=== PATIENT | male | born 1955 | race Caucasian/White ===

== ENCOUNTER 2020-08-16 11:21 | Day surgery (SDC) | payer BC ==
[~2020-08-16] VITALS: Ht 188 cm; Wt 88.8 kg
[2020-08-16] VITALS (9 sets, daily range): BP systolic 91–146; BP diastolic 65–104
[2020-08-16] MEDS ORDERED: normal saline 1,000 ML IV SCH (11:50)
[2020-08-16] MEDS ORDERED: diphenhydrAMINE 25mg capsule PO PRN (11:50)
[2020-08-16] MEDS ORDERED: LIDOcaine/PRILOcaine 5gm cream TP ONE (11:50)
[2020-08-16] MEDS ORDERED: LORazepam 0.5 MG tablet PO PRN (11:50)
[2020-08-16] MEDS ORDERED: IRBE150T24 PO (11:56)
[2020-08-16] MEDS ORDERED: FLO0.4C PO (11:56)
[2020-08-16] MEDS ORDERED: OMEG-79 PO (11:56)
[2020-08-16] MEDS ORDERED: TURM1POW (11:56)
[2020-08-16] MEDS ORDERED: OREG1500 PO (11:56)
[2020-08-16] MEDS ORDERED: VITA-268 PO (11:56)
[2020-08-16] MEDS ORDERED: nitroGLYCERIN-Tridil 50MG/D5W 250 ML IV ONE (13:27)
[2020-08-16] MEDS ORDERED: iohexol 350MG/ML 100ml bottle IV ONE (13:28)
[2020-08-16] MEDS ORDERED: LIDOcaine 1% (10mg/ml)w/preservative injection 20ml MDV ONE (13:28)
[2020-08-16] MEDS ORDERED: fentaNYL/PF 50MCG/1 ML 2ML syringe ONE (13:28)
[2020-08-16] MEDS ORDERED: midazolam 1 mg/ML 2ml injection ONE (13:28)
[2020-08-16] MEDS ORDERED: heparin 1,000unit/ml 10ml vial 10 ML ONE (13:28)
[2020-08-16] MEDS ORDERED: verapamil 2.5 mg/ml inj IV ONE (13:28)
[2020-08-16] MEDS ORDERED: iohexol 350 MG/ML 50ML vial IV ONE (13:44)
[2020-08-16] MEDS ORDERED: ondansetron/PF 4mg/2ml inj IV PRN (14:35)
[2020-08-16] MEDS ORDERED: OXAZEpam 15mg capsule PO PRN (14:40)
[2020-08-16] MEDS ORDERED: HYDROcodone/acetaminophen 5mg/325mg tablet PO PRN (14:40)
[2020-08-16] MEDS ORDERED: HYDROcodone/acetaminophen 10/325mg tab PO PRN (14:40)
[2020-08-16] MEDS ORDERED: proCHLORperazine 10 MG/2 ml inj IV PRN (14:40)
== END 2020-08-16 17:00 | disposition home or self-care (01) ==
LOC: SSTAY O 11:21
PROVIDERS: ATTEND Internal Medicine Interventional Cardiology
DX: I71.2 Thoracic aortic aneurysm, without rupture (principal); I25.10 Atherosclerotic heart disease of native coronary artery without angina pectoris; E78.5 Hyperlipidemia, unspecified; I10 Essential (primary) hypertension; F32.9 Major depressive disorder, single episode, unspecified; Z86.010 Personal history of colon polyps; Z79.899 Other long term (current) drug therapy; Z88.1 Allergy status to other antibiotic agents; Z87.891 Personal history of nicotine dependence
CPT/HCPCS: 93005; 93458; 93567; 99152; C1769; C1894; J1644; J2001; J2250; J3010; J7030; Q0163; Q9967; 99153; A4620; J3490

== ENCOUNTER 2020-11-02 05:20 | Inpatient (IN) | payer BC ==
[2020-10-26 13:33] LABS: CLARITY,URINE CLEAR (Clear); COLOR,URINE YELLOW (Yellow); GLUCOSE, URINE NEGATIVE (Neg); KETONES,URINE NEGATIVE (Neg); LEUKOCYTE ESTERASE ,URINE TRACE (Neg); NITRITES, URINE NEGATIVE (Neg); OCCULT BLOOD,URINE NEGATIVE (Neg); PH,URINE 6.5 (4.8-8.0); PROTEIN,URINE NEGATIVE (Neg); UROBILINOGEN,URINE 0.2 E.U/dL (0.2-1.0)
[2020-10-26 13:40] LABS: UA COLLECTION TYPE CLN CATCH MIDSTREAM
[2020-10-26 13:42] LABS: BACTERIA,URINE NONE SEEN /HPF (Neg); MUCUS STRANDS NONE SEEN /LPF (Neg); RBC,URINE NONE SEEN /HPF (0-2); SQUAMOUS EPITHELIAL CELL,UR FEW /LPF (FEW); WBC,URINE 0-4 /HPF (0-4)
[2020-10-26 14:15] LABS: BASOPHILS # (AUTO) 0.1 X10'3 (0-0.2); EOSINOPHILS # (AUTO) 0.1 X10'3 (0-0.9); EOSINOPHILS % (AUTO) 1.1 % (0-6); LYMPHOCYTES # (AUTO) 2.1 X10'3 (1.1-4.8); LYMPHOCYTES % (AUTO) 31.3 % (21-51); MEAN CORPUSCULAR HEMOGLOBIN 32.8 PG (27.0-31.0); MEAN CORPUSCULAR HGB CONC 34.4 g/dL (33.0-36.5); MEAN CORPUSCULAR VOLUME 95.3 FL (78-98); MEAN PLATELET VOLUME 8.3 FL (7.4-10.4); MONOCYTES # (AUTO) 0.5 X10'3 (0-0.9); MONOCYTES % (AUTO) 8.2 % (2-12); NEUTROPHILS # (AUTO) 3.9 X10'3 (1.8-7.7); NEUTROPHILS % (AUTO) 58.4 % (42-75); PRE OP HEMOGLOBIN 14.8 g/dL (14.0-17.9); PRE OP PLATELET COUNT 279 X10'3 (140-440); RED BLOOD COUNT 4.51 X10'6 (4.70-6.10); RED CELL DISTRIBUTION WIDTH 12.8 % (11.5-14.5)
[2020-10-26 14:23] LABS: HEMOGLOBIN A1C 5.5 % (4.5-6.2)
[2020-10-26 14:27] LABS: PRE OP PROTIME 10.5 SECONDS (9.0-12.0)
[2020-10-26 14:30] LABS: ALBUMIN 3.9 G/DL (3.4-5.0); ALBUMIN/GLOBULIN RATIO 1.2 (1.1-1.5); ALKALINE PHOSPHATASE 55 IU/L (46-116); BLOOD UREA NITROGEN 20 MG/DL (7-18); BUN/CREATININE RATIO 21.1 (5.4-32.0); CHLORIDE 103 MMOL/L (99-107); CREATININE 0.95 MG/DL (0.60-1.10); PRE OP ALT 34 U/L (30-65); PRE OP ANION GAP 10 (8-16); PRE OP AST 27 U/L (10-37); PRE OP BILIRUB, TOTAL 0.7 MG/DL (0.0-1.0); PRE OP GLUCOSE 103 MG/DL (70-104); PRE OP POTASSIUM 3.9 MMOL/L (3.4-5.1); PRE OP SODIUM 140 MMOL/L (135-145); TOTAL CARBON DIOXIDE 27.1 MMOL/L (24-32); TOTAL PROTEIN 7.2 G/DL (6.4-8.2); eGFR 80 ML/MIN
[2020-10-26 16:09] LABS: ABG BASE EXCESS 0.6 mmol/L (-2.0-2.0); ABG HCO3 23.5 mmol/L (22.0-26.0); ABG OXYGEN SATURATION 96.9 % (94-97); ABG PCO2 (T) 33.1 mmHg (35.0-48.0); ABG PO2 (T) 87.8 mmHg (75.0-100.0); ALLEN'S TEST POSITIVE; FCOHb 0.6 % (0.0-3.9); FO2Hb 96.3 % (94-97); TOTAL HEMOGLOBIN 15.1 G/dl (14.0-18.0)
[2020-11-02] VITALS (17 sets, daily range): BP systolic 101–147; BP diastolic 50–90
[~2020-11-02] VITALS: Ht 165.1 cm; Wt 87.2 kg
[~2020-11-02 05:20] MED LIST: CHOL10006 PO; FLO0.4C PO; GRAP50CA PO; LACT1CAP65 PO; LOSA1TAB41 PO; MULT-1085 PO; OMEG-79 PO; OREG1500 PO; TURM1POW PO; VITA-268 PO; ceFAZolin 1000mg inj ONE; ringers solution, lacted 1,000 ML IV SCH
[2020-11-02] MEDS ORDERED: cefazolin/dext.iso 2gm/100ml IV ONE (05:30)
[2020-11-02] MEDS ORDERED: vancomycin 1,500 MG in NS 300ml IV soln IV ONE (05:30)
[2020-11-02] MEDS ORDERED: gabapentin 400mg capsule PO ONE (05:30)
[2020-11-02] MEDS ORDERED: insulin glargine (Lantus) pen - multi-dose SQ PRN ×2 (05:30→11:30)
[2020-11-02] MEDS ORDERED: LORazepam 2 mg/ml vial IV PRN (05:30)
[2020-11-02] MEDS ORDERED: mupirocin 2% nasal ointment 1gm UD NS ONE (05:30)
[2020-11-02] MEDS ORDERED: famotidine 20mg tablet PO ONE (05:30)
[2020-11-02] MEDS ORDERED: Insulin Reg/NS 100units/100mL 100 ML IV SCH ×2 (05:30→11:30)
[2020-11-02] MEDS ORDERED: metoprolol tartrate 12.5mg (1/2 tablet) PO ONE (05:30)
[2020-11-02] MEDS ORDERED: MIDAZolam 1 MG/ML 5ML VIAL ONE (06:59)
[2020-11-02] MEDS ORDERED: SUFENTANIL CITRATE 50 MCG/ML 2ml ampule IV ONE (06:59)
[2020-11-02] MEDS ORDERED: propofol inj 20 ML IV ONE (07:00)
[2020-11-02] MEDS ORDERED: rocuronium 10mg/ml inj IV ONE ×3 (07:03→11:26)
[2020-11-02] MEDS ORDERED: NORepinephrine 8 MG in NS 250 ML BAG (32 mcg/ml) IV ONE (08:00)
[2020-11-02] MEDS ORDERED: albumin (Human) 5% 250ml BOTTLE IV ONE (08:00)
[2020-11-02] MEDS ORDERED: calcium chloride 100 MG/1 ML inj IV ONE (08:00)
[2020-11-02] MEDS ORDERED: heparin 1,000 units/ml 10ml inj ONE (08:00)
[2020-11-02] MEDS ORDERED: MAGNESIUM SULFATE 4 MEQ/ML (5gm/10ml) injection ONE (08:00)
[2020-11-02] MEDS ORDERED: potassium Cl 2 mEq/ml inj IV ONE (08:00)
[2020-11-02] MEDS ORDERED: heparin 10,000 units/1 ML INJ ONE (08:00)
[2020-11-02] MEDS ORDERED: LIDOcaine 2% (20 mg/ml) 5ml cardiac syringe ONE (08:00)
[2020-11-02] MEDS ORDERED: methylPREDNISolone sod succ 1000mg vial ONE (08:00)
[2020-11-02] MEDS ORDERED: aminocaproic acid 250 MG/1 ML inj. ONE (08:00)
[2020-11-02] MEDS ORDERED: sodium bicarbonate (8.4%) 1 mEq/ml syringe ONE (08:00)
[2020-11-02 08:25] LABS: ABG BASE EXCESS 1.6 mmol/L (-2.0-2.0); ABG HCO3 26.6 mmol/L (22.0-26.0); ABG OXYGEN SATURATION 98.6 % (94-97); ABG PCO2 43.5 mmHg (35.0-48.0); ABG PO2 133.5 mmHg (75.0-100.0); CL (ABG) 104 mmol/L (98-110); FCOHb 0.5 % (0.0-3.9); FMetHb 0.3 % (0.0-1.5); FO2Hb 97.8 % (94-97); GLUCOSE (ABG) 136 mg/dl (70-105); IONIZED CA (ABG) 1.15 mmol/L (1.10-1.43); K (ABG) 3.7 mmol/L (3.5-5.0); TOTAL HEMOGLOBIN 13.1 G/dl (14.0-18.0)
[2020-11-02] MEDS ORDERED: NORMAL SALINE IV ONE (09:25)
[2020-11-02] MEDS ORDERED: DESMOPRESSIN IV ONE (09:25)
[2020-11-02 09:45] LABS: ABG BASE EXCESS 0.7 mmol/L (-2.0-2.0); ABG HCO3 25.8 mmol/L (22.0-26.0); ABG OXYGEN SATURATION 99.4 % (94-97); ABG PCO2 43.2 mmHg (35.0-48.0); ABG PO2 421.3 mmHg (75.0-100.0); CL (ABG) 104 mmol/L (98-110); FCOHb 0.3 % (0.0-3.9); FMetHb 0.3 % (0.0-1.5); FO2Hb 98.8 % (94-97); GLUCOSE (ABG) 130 mg/dl (70-105); IONIZED CA (ABG) 1.07 mmol/L (1.10-1.43); K (ABG) 4.1 mmol/L (3.5-5.0); TOTAL HEMOGLOBIN 10.6 G/dl (14.0-18.0)
[2020-11-02 10:13] LABS: ABG BASE EXCESS VENOUS -0.9 mmol/L (-2.0 - 2.0); ABG HCO3 VENOUS 24.2 mmol/L (21.0-28.0); ABG PCO2 VENOUS 41.9 mmHg (41.0-54.0); ABG PO2 VENOUS 39.9 mmHg (25.0-35.0); CL (ABG) 102 mmol/L (98-110); FCOHb VENOUS 0.6 %; FHHb VENOUS 24.1 %; FMetHb VENOUS 0.3 % (0.0 - 0.5); GLUCOSE (ABG) 141 mg/dl (70-105); IONIZED CA (ABG) 1.28 mmol/L (1.10-1.43); K (ABG) 4.4 mmol/L (3.5-5.0); TOTAL HEMOGLOBIN 9.7 G/dl (14.0-18.0)
[2020-11-02 10:33] LABS: ABG BASE EXCESS VENOUS 0.2 mmol/L (-2.0 - 2.0); ABG HCO3 VENOUS 25.2 mmol/L (21.0-28.0); ABG PCO2 VENOUS 42.1 mmHg (41.0-54.0); ABG PO2 VENOUS 53.1 mmHg (25.0-35.0); CL (ABG) 103 mmol/L (98-110); FCOHb VENOUS 0.3 %; FHHb VENOUS 13.5 %; FMetHb VENOUS 0.3 % (0.0 - 0.5); FO2Hb VENOUS 85.9 %; GLUCOSE (ABG) 158 mg/dl (70-105); IONIZED CA (ABG) 1.22 mmol/L (1.10-1.43); TOTAL HEMOGLOBIN 10.6 G/dl (14.0-18.0)
[2020-11-02 10:36] LABS: ACTIVATED CLOTTING TIME 113 SEC (101-148)
[2020-11-02] MEDS ORDERED: pantoprazole 40 MG vial IV ONE (11:30)
[2020-11-02] MEDS ORDERED: metoclopramide 5 mg/ml inj IV PRN (11:30)
[2020-11-02] MEDS ORDERED: bisacodyl 10mg suppository rectal RC PRN (11:30)
[2020-11-02] MEDS ORDERED: dextrose 50%-water 50ml dispensing syringe IV PRN ×2 (11:30→11:35)
[2020-11-02] MEDS ORDERED: magnesium 2GM in 50ml NS 50 ML IV PRN (11:30)
[2020-11-02] MEDS ORDERED: potassium Cl 40MEQ/1/2NS 520ml 520 ML IV PRN (11:30)
[2020-11-02] MEDS ORDERED: nitroGLYCERIN-Tridil 50MG/D5W 250 ML IV PRN (11:30)
[2020-11-02] MEDS ORDERED: normal saline 250ml IV soln 250 ML IV PRN (11:30)
[2020-11-02] MEDS ORDERED: potassium Cl 20 mEq SR tablet PO PRN (11:30)
[2020-11-02] MEDS ORDERED: mineral oil 133ml enema RC PRN (11:30)
[2020-11-02] MEDS ORDERED: niCARDipine-NS 40mg/200ml IVPB 200 ML IV PRN (11:30)
[2020-11-02] MEDS ORDERED: magnesium hydroxide 30ml (MOM) UD suspension PO PRN (11:30)
[2020-11-02] MEDS ORDERED: Neutra Phos packet PO PRN (11:30)
[2020-11-02] MEDS ORDERED: sodium phosphate inj. 15 MMOL in dextrose 5%-water 250 ML IV PRN (11:30)
[2020-11-02] MEDS ORDERED: potassium CL 10mEq/100ml bag 100 ML IV PRN (11:30)
[2020-11-02] MEDS ORDERED: DOPamine 400mg/D5W 250ml 250 ML IV PRN (11:30)
[2020-11-02] MEDS ORDERED: magnesium citrate 296ml oral solution PO PRN (11:30)
[2020-11-02] MEDS ORDERED: sodium phosphate inj. 30 MMOL in dextrose 5%-water 250 ML IV PRN (11:30)
[2020-11-02] MEDS ORDERED: acetaminophen 325mg tablet PO PRN (11:30)
[2020-11-02] MEDS ORDERED: magnesium 4gm in 100ml NS 100 ML IV PRN (11:30)
[2020-11-02] MEDS ORDERED: morphine 4 MG/ML inj SYRINge IV PRN ×2 (11:30)
[2020-11-02] MEDS ORDERED: ondansetron/PF 4mg/2ml inj IV PRN (11:30)
[2020-11-02] MEDS ORDERED: potassium Cl 40MEQ/250ML bag 250 ML IV PRN (11:30)
--- NOTE | 2020-11-02 11:37 | NUR ---
CABG Consult: Pt s/p ascending aorta replacement DX ascending aortic aneurysm this admit per EMR. Would benefit from high protein ed once stable post-op this admit. Addendum: 11/02/20 at [address] Amended: Links added.
[2020-11-02 11:55] LABS: ABG BASE EXCESS -2.4 mmol/L (-2.0-2.0); ABG HCO3 21.8 mmol/L (22.0-26.0); ABG PCO2 (T) 34.8 mmHg (35.0-48.0); ABG PO2 (T) 129.2 mmHg (75.0-100.0); FCOHb 0.3 % (0.0-3.9); FMetHb 0.5 % (0.0-1.5); FO2Hb 97.2 % (94-97); PATIENT TEMPERATURE 36.4; PEEP 5 cm H2O; RESPIRATORY RATE 14 b/min; TIDAL VOLUME 550 mL; TOTAL HEMOGLOBIN 12.5 G/dl (14.0-18.0)
[2020-11-02 12:03] LABS: BASOPHILS % (AUTO) 0.2 % (0-1); EOSINOPHILS % (AUTO) 0.3 % (0-6); HEMATOCRIT 35.4 % (42.0-52.0); HEMOGLOBIN 12.1 g/dl (14.0-17.9); LYMPHOCYTES # (AUTO) 0.6 X10'3 (1.1-4.8); LYMPHOCYTES % (AUTO) 5.8 % (21-51); MEAN CORPUSCULAR HEMOGLOBIN 32.7 PG (27.0-31.0); MEAN CORPUSCULAR VOLUME 96.1 FL (78-98); MEAN PLATELET VOLUME 7.9 FL (7.4-10.4); MONOCYTES # (AUTO) 0.5 X10'3 (0-0.9); MONOCYTES % (AUTO) 4.6 % (2-12); NEUTROPHILS # (AUTO) 9.9 X10'3 (1.8-7.7); NEUTROPHILS % (AUTO) 89.1 % (42-75); PLATELET COUNT 184 X10'3 (140-440); RED BLOOD COUNT 3.69 X10'6 (4.70-6.10); RED CELL DISTRIBUTION WIDTH 12.6 % (11.5-14.5); WHITE BLOOD COUNT 11.1 X10'3 (4.5-11.0)
[2020-11-02 12:12] LABS: PARTIAL THROMBOPLASTIN TIME 28 SECONDS (22-32)
[2020-11-02 12:16] LABS: ALANINE AMINOTRANSFERASE 19 U/L (12-78); ALBUMIN 2.9 G/DL (3.4-5.0); ALBUMIN/GLOBULIN RATIO 1.5 (1.1-1.5); ALKALINE PHOSPHATASE 36 IU/L (46-116); ANION GAP 8 (8-16); ASPARTATE AMINO TRANSFERASE 33 U/L (10-37); BLOOD UREA NITROGEN 15 MG/DL (7-18); BUN/CREATININE RATIO 16.7 (5.4-32.0); CALCIUM 7.7 MG/DL (8.5-10.1); CHLORIDE 109 MMOL/L (99-107); GLUCOSE 176 MG/DL (70-104); MAGNESIUM 3.9 MG/DL (1.5-2.4); PHOSPHORUS 1.6 MG/DL (2.3-4.5); POTASSIUM 3.7 MMOL/L (3.5-5.1); SODIUM 144 MMOL/L (135-145); TOTAL CARBON DIOXIDE 26.7 MMOL/L (24-32); TOTAL PROTEIN 4.9 G/DL (6.4-8.2); eGFR 85 ML/MIN
[2020-11-02] MEDS: gabapentin 300mg capsule PO SCH ×2 (12:56→20:20)
[2020-11-02] MEDS: potassium Cl 20mEq/100mL bag 100 ML IV PRN ×5 (12:56→20:21)
[2020-11-02] MEDS: sodium chloride 0.45% 1,000 ML IV SCH (12:56)
[2020-11-02] MEDS: NORepinephrine 8mg/ 250ml NS 250 ML IV SCH (13:40)
[2020-11-02] MEDS: albumin (Human) 5% 250ml 250 ML IV PRN ×3 (13:48→17:54)
[2020-11-02] MEDS: ceFAZolin/D5W- 1GM premix 50 ML IV SCH (15:50)
[2020-11-02 17:33] LABS: ABG HCO3 21.9 mmol/L (22.0-26.0); ABG OXYGEN SATURATION 98.1 % (94-97); ABG PCO2 (T) 38.6 mmHg (35.0-48.0); ABG PO2 (T) 135.5 mmHg (75.0-100.0); FCOHb 0.3 % (0.0-3.9); FMetHb 0.4 % (0.0-1.5); FO2Hb 97.4 % (94-97); PEEP 5 cm H2O; TOTAL HEMOGLOBIN 12.4 G/dl (14.0-18.0)
[2020-11-02 17:44] LABS: BASOPHILS % (AUTO) 0 % (0-1); EOSINOPHILS % (AUTO) 0 % (0-6); LYMPHOCYTES # (AUTO) 0.3 X10'3 (1.1-4.8); LYMPHOCYTES % (AUTO) 2.6 % (21-51); MEAN CORPUSCULAR HEMOGLOBIN 33.1 PG (27.0-31.0); MEAN CORPUSCULAR HGB CONC 34.4 g/dL (33.0-36.5); MEAN CORPUSCULAR VOLUME 96.2 FL (78-98); MEAN PLATELET VOLUME 8.1 FL (7.4-10.4); MONOCYTES # (AUTO) 0.3 X10'3 (0-0.9); MONOCYTES % (AUTO) 2.5 % (2-12); NEUTROPHILS # (AUTO) 11.4 X10'3 (1.8-7.7); NEUTROPHILS % (AUTO) 94.9 % (42-75); PLATELET COUNT 188 X10'3 (140-440); RED BLOOD COUNT 3.64 X10'6 (4.70-6.10); RED CELL DISTRIBUTION WIDTH 12.7 % (11.5-14.5); WHITE BLOOD COUNT 12.1 X10'3 (4.5-11.0)
[2020-11-02 17:57] LABS: ALBUMIN 3.4 G/DL (3.4-5.0); ANION GAP 9 (8-16); BLOOD UREA NITROGEN 16 MG/DL (7-18); BUN/CREATININE RATIO 17.6 (5.4-32.0); CALCIUM 7.5 MG/DL (8.5-10.1); CHLORIDE 111 MMOL/L (99-107); CREATININE 0.91 MG/DL (0.60-1.10); GLUCOSE 162 MG/DL (70-104); MAGNESIUM 2.8 MG/DL (1.5-2.4); PHOSPHORUS 2.7 MG/DL (2.3-4.5); POTASSIUM 4.1 MMOL/L (3.5-5.1); SODIUM 145 MMOL/L (135-145); TOTAL CARBON DIOXIDE 24.8 MMOL/L (24-32); eGFR 84 ML/MIN
--- NOTE | 2020-11-02 18:16 | NUR ---
Problems reprioritized. Patient report given, questions answered & plan of care reviewed with LYNDON Encarnacion.
--- NOTE | 2020-11-02 18:20 | NUR ---
Patient in room ICU 2044. I have received report from Sonam HANEY and had the opportunity to ask questions and assume patient care. PT is resting comfortably with no s/s of distress noted at this time. PT is receiving 0.02mcg/kg/min of Levo and will continue to titrate down as PT tolerates, tolerating well, MAP greater than 70. PT has RT IJ and PA cath, RT radial A-Line. Lines zeroed and transduced to pressure tubing. Last CI was 3.3 and CO 6.3. Lawrence in place draining to gravity. CT's in place with serosanguineous drainage noted in tubing. PT wakes easily and answered questions appropriately. States his pain is under control. Bed is locked and low. Call light is within reach. Will continue to monitor.
[2020-11-02] MEDS: vancomycin/NS 1 GM ADD-VANTAGE 250 ML IV SCH (20:20)
[2020-11-02] MEDS: sennosides/docusate sodium tablet PO SCH (20:20)
[2020-11-02] MEDS: atorvastatin 10mg tablet PO SCH (20:20)
[2020-11-02] MEDS: mupirocin 2% nasal ointment 1gm UD NS SCH (20:20)
[2020-11-02] MEDS: HYDROcodone/acetaminophen 10/325mg tab PO PRN (21:04)
[2020-11-03] VITALS (25 sets, daily range): BP systolic 103–142; BP diastolic 51–72
[2020-11-03] MEDS: ceFAZolin/D5W- 1GM premix 50 ML IV SCH ×4 (00:07→23:53)
[2020-11-03] MEDS: HYDROcodone/acetaminophen 10/325mg tab PO PRN ×5 (01:16→23:09)
[2020-11-03 02:57] LABS: BASOPHILS % (AUTO) 0.1 % (0-1); EOSINOPHILS % (AUTO) 0 % (0-6); HEMATOCRIT 30.8 % (42.0-52.0); HEMOGLOBIN 10.5 g/dl (14.0-17.9); LYMPHOCYTES # (AUTO) 0.6 X10'3 (1.1-4.8); LYMPHOCYTES % (AUTO) 5.1 % (21-51); MEAN CORPUSCULAR HGB CONC 34.2 g/dL (33.0-36.5); MEAN CORPUSCULAR VOLUME 96.4 FL (78-98); MEAN PLATELET VOLUME 8.2 FL (7.4-10.4); MONOCYTES # (AUTO) 0.6 X10'3 (0-0.9); NEUTROPHILS % (AUTO) 89.8 % (42-75); PLATELET COUNT 167 X10'3 (140-440); RED BLOOD COUNT 3.19 X10'6 (4.70-6.10); RED CELL DISTRIBUTION WIDTH 12.9 % (11.5-14.5); WHITE BLOOD COUNT 11.1 X10'3 (4.5-11.0)
[2020-11-03 03:05] LABS: PARTIAL THROMBOPLASTIN TIME 29 SECONDS (22-32)
[2020-11-03 03:06] LABS: ALANINE AMINOTRANSFERASE 21 U/L (12-78); ALBUMIN 3.3 G/DL (3.4-5.0); ALBUMIN/GLOBULIN RATIO 1.7 (1.1-1.5); ALKALINE PHOSPHATASE 31 IU/L (46-116); ANION GAP 7 (8-16); ASPARTATE AMINO TRANSFERASE 31 U/L (10-37); BILIRUBIN,TOTAL 0.7 MG/DL (0.1-1.0); BLOOD UREA NITROGEN 18 MG/DL (7-18); BUN/CREATININE RATIO 23.4 (5.4-32.0); CALCIUM 7.4 MG/DL (8.5-10.1); CHLORIDE 110 MMOL/L (99-107); CREATININE 0.77 MG/DL (0.60-1.10); GLUCOSE 113 MG/DL (70-104); MAGNESIUM 2.6 MG/DL (1.5-2.4); PHOSPHORUS 3.5 MG/DL (2.3-4.5); POTASSIUM 4.1 MMOL/L (3.5-5.1); SODIUM 143 MMOL/L (135-145); TOTAL CARBON DIOXIDE 25.7 MMOL/L (24-32); TOTAL PROTEIN 5.3 G/DL (6.4-8.2); eGFR > 90 ML/MIN
[2020-11-03] MEDS: potassium Cl 20mEq/100mL bag 100 ML IV PRN ×2 (03:17→04:27)
[2020-11-03] MEDS: NORepinephrine 8mg/ 250ml NS 250 ML IV SCH (04:48)
--- NOTE | 2020-11-03 06:26 | NUR ---
Problems reprioritized. Patient report given, questions answered & plan of care reviewed with Kwabena HANEY.
[2020-11-03] MEDS: vancomycin/NS 1 GM ADD-VANTAGE 250 ML IV SCH ×2 (08:30→19:37)
[2020-11-03] MEDS: mupirocin 2% nasal ointment 1gm UD NS SCH ×2 (08:31→19:37)
[2020-11-03] MEDS: metoprolol tartrate 12.5mg (1/2 tablet) PO SCH ×2 (08:32→19:45)
[2020-11-03] MEDS: gabapentin 300mg capsule PO SCH ×3 (08:32→20:39)
[2020-11-03] MEDS: sennosides/docusate sodium tablet PO SCH ×2 (08:33→19:46)
[2020-11-03] MEDS: multivitamins, therapeutics tablet PO SCH (08:33)
[2020-11-03] MEDS: aspirin 325mg tablet, delayed-release (Ecotrin) PO SCH (08:34)
[2020-11-03] MEDS: cholecalciferol (vitamin D3) 1,000 unit (25mcg) tablet PO SCH (08:43)
[2020-11-03] MEDS: tamsulosin 0.4mg capsule PO SCH (08:43)
[2020-11-03] MEDS ORDERED: dextrose 50%-water 50ml dispensing syringe IV PRN ×2 (09:20)
[2020-11-03] MEDS ORDERED: insulin Lispro (HumaLOG) vial - multi-dose SQ SCH (09:20)
[2020-11-03] MEDS ORDERED: dextrose ORAL solution 15 GM/59 ML bottle PO PRN ×2 (09:20)
[2020-11-03] MEDS ORDERED: MESSAGE TO PHARMACY PO ONE (09:20)
[2020-11-03] MEDS ORDERED: glucagon, human recombinant 1mg kit SUBCUT PRN (09:20)
--- NOTE | 2020-11-03 18:25 | NUR ---
Patient in room ICU 2044. I have received report from Kwabena HANEY and had the opportunity to ask questions and assume patient care.
[2020-11-03] MEDS: atorvastatin 10mg tablet PO SCH (20:39)
[2020-11-03] MEDS: losartan 50mg tablet PO SCH (21:00)
[2020-11-03] MEDS: insulin glargine (Lantus) pen - multi-dose SQ SCH (21:00)
[2020-11-04] VITALS (23 sets, daily range): BP systolic 92–135; BP diastolic 56–82
--- NOTE | 2020-11-04 06:20 | NUR ---
Problems reprioritized. Patient report given, questions answered & plan of care reviewed with Kwabena HANEY.
[2020-11-04 06:21] LABS: BASOPHILS % (AUTO) 0 % (0-1); EOSINOPHILS % (AUTO) 0 % (0-6); HEMATOCRIT 31.4 % (42.0-52.0); HEMOGLOBIN 10.7 g/dl (14.0-17.9); LYMPHOCYTES % (AUTO) 6.7 % (21-51); MEAN CORPUSCULAR HEMOGLOBIN 33.2 PG (27.0-31.0); MEAN CORPUSCULAR HGB CONC 34.1 g/dL (33.0-36.5); MEAN CORPUSCULAR VOLUME 97.1 FL (78-98); MEAN PLATELET VOLUME 8.8 FL (7.4-10.4); MONOCYTES % (AUTO) 6.7 % (2-12); NEUTROPHILS # (AUTO) 12.6 X10'3 (1.8-7.7); NEUTROPHILS % (AUTO) 86.6 % (42-75); PLATELET COUNT 151 X10'3 (140-440); RED BLOOD COUNT 3.23 X10'6 (4.70-6.10); RED CELL DISTRIBUTION WIDTH 12.9 % (11.5-14.5); WHITE BLOOD COUNT 14.6 X10'3 (4.5-11.0)
[2020-11-04 06:55] LABS: ANION GAP 7 (8-16); BLOOD UREA NITROGEN 17 MG/DL (7-18); BUN/CREATININE RATIO 23.9 (5.4-32.0); CHLORIDE 102 MMOL/L (99-107); CREATININE 0.71 MG/DL (0.60-1.10); GLUCOSE 151 MG/DL (70-104); MAGNESIUM 2.4 MG/DL (1.5-2.4); PHOSPHORUS 2.5 MG/DL (2.3-4.5); POTASSIUM 4.7 MMOL/L (3.5-5.1); SODIUM 135 MMOL/L (135-145); TOTAL CARBON DIOXIDE 25.9 MMOL/L (24-32); eGFR > 90 ML/MIN
[2020-11-04] MEDS ORDERED: furosemide 40mg/4ml inj IV ONE (08:00)
[2020-11-04] MEDS: multivitamins, therapeutics tablet PO SCH (08:26)
[2020-11-04] MEDS: aspirin 325mg tablet, delayed-release (Ecotrin) PO SCH (08:26)
[2020-11-04] MEDS: HYDROcodone/acetaminophen 10/325mg tab PO PRN ×2 (08:26→23:18)
[2020-11-04] MEDS: metoprolol tartrate 12.5mg (1/2 tablet) PO SCH ×2 (08:27→19:59)
[2020-11-04] MEDS: pantoprazole 40mg Tablet.DR PO SCH (08:27)
[2020-11-04] MEDS: cholecalciferol (vitamin D3) 1,000 unit (25mcg) tablet PO SCH (08:28)
[2020-11-04] MEDS: mupirocin 2% nasal ointment 1gm UD NS SCH (08:28)
[2020-11-04] MEDS: tamsulosin 0.4mg capsule PO SCH (08:28)
[2020-11-04] MEDS: gabapentin 300mg capsule PO SCH (08:28)
[2020-11-04] MEDS: sennosides/docusate sodium tablet PO SCH ×2 (08:28→19:58)
--- NOTE | 2020-11-04 10:26 | NUR ---
F/u for nutrition consult: Pt s/p ascending aorta replacement seen at bedside provided with written and verbal protein education. Pt reports reading all materials pre-op and appeared to already have an understanding on the importance of nutrition post-op. Pt endorses a good appetite and reports consuming all of meals despite documentation indicating only 100% PO intake of milk. Pt reports getting full from meals and denies need for additional protein at this time or any issues feeding self with surgical site. Pt denies food allergies or difficulty chewing/swallowing. LBM 11/02, pt denies feeling constipated. Pt receiving routine bowel care with PRN bowel care available. Pt declines nutrition intervention for constipation. RD contact information provided and pt encouraged to reach out for questions and/or food preferences. Will continue to follow. Addendum: 11/04/20 at [address] Amended: Links added.
[2020-11-04] MEDS: sodium chloride 0.45% 1,000 ML IV SCH (11:30)
--- NOTE | 2020-11-04 18:31 | NUR ---
Patient in room ICU 2044. I have received report from Kwabena HANEY and had the opportunity to ask questions and assume patient care.
[2020-11-04] MEDS: insulin glargine (Lantus) pen - multi-dose SQ SCH (19:59)
[2020-11-04] MEDS: atorvastatin 10mg tablet PO SCH (20:01)
[2020-11-04] MEDS: losartan 50mg tablet PO SCH (21:41)
[2020-11-05] VITALS (22 sets, daily range): BP systolic 78–127; BP diastolic 52–73
[2020-11-05 05:50] LABS: BASOPHILS % (AUTO) 0.1 % (0-1); EOSINOPHILS % (AUTO) 0 % (0-6); HEMATOCRIT 34.3 % (42.0-52.0); HEMOGLOBIN 11.5 g/dl (14.0-17.9); LYMPHOCYTES # (AUTO) 1.3 X10'3 (1.1-4.8); LYMPHOCYTES % (AUTO) 11.2 % (21-51); MEAN CORPUSCULAR HEMOGLOBIN 32.5 PG (27.0-31.0); MEAN CORPUSCULAR HGB CONC 33.6 g/dL (33.0-36.5); MEAN CORPUSCULAR VOLUME 96.6 FL (78-98); MEAN PLATELET VOLUME 8.7 FL (7.4-10.4); MONOCYTES # (AUTO) 1.5 X10'3 (0-0.9); MONOCYTES % (AUTO) 12.4 % (2-12); NEUTROPHILS # (AUTO) 8.9 X10'3 (1.8-7.7); NEUTROPHILS % (AUTO) 76.3 % (42-75); PLATELET COUNT 198 X10'3 (140-440); RED BLOOD COUNT 3.55 X10'6 (4.70-6.10); RED CELL DISTRIBUTION WIDTH 12.9 % (11.5-14.5); WHITE BLOOD COUNT 11.7 X10'3 (4.5-11.0)
--- NOTE | 2020-11-05 06:31 | NUR ---
Problems reprioritized. Patient report given, questions answered & plan of care reviewed with Kwabena HANEY.
[2020-11-05 06:42] LABS: ANION GAP 8 (8-16); BLOOD UREA NITROGEN 21 MG/DL (7-18); BUN/CREATININE RATIO 23.9 (5.4-32.0); CALCIUM 8.2 MG/DL (8.5-10.1); CHLORIDE 106 MMOL/L (99-107); CREATININE 0.88 MG/DL (0.60-1.10); GLUCOSE 120 MG/DL (70-104); MAGNESIUM 2.1 MG/DL (1.5-2.4); PHOSPHORUS 2.4 MG/DL (2.3-4.5); POTASSIUM 4.2 MMOL/L (3.5-5.1); SODIUM 142 MMOL/L (135-145); TOTAL CARBON DIOXIDE 27.9 MMOL/L (24-32); eGFR 87 ML/MIN
[2020-11-05] MEDS: metoprolol tartrate 12.5mg (1/2 tablet) PO SCH ×2 (08:00→20:00)
[2020-11-05] MEDS: sennosides/docusate sodium tablet PO SCH ×2 (08:27→20:11)
[2020-11-05] MEDS: aspirin 325mg tablet, delayed-release (Ecotrin) PO SCH (08:28)
[2020-11-05] MEDS: pantoprazole 40mg Tablet.DR PO SCH (08:28)
[2020-11-05] MEDS: cholecalciferol (vitamin D3) 1,000 unit (25mcg) tablet PO SCH (08:28)
[2020-11-05] MEDS: multivitamins, therapeutics tablet PO SCH (08:28)
[2020-11-05] MEDS: tamsulosin 0.4mg capsule PO SCH (08:28)
[2020-11-05] MEDS ORDERED: polyethylene glycol 3350 17gm powd pack PO SCH (14:05)
[2020-11-05] MEDS: HYDROcodone/acetaminophen 10/325mg tab PO PRN (14:44)
--- NOTE | 2020-11-05 18:27 | NUR ---
Patient in room ICU 2044. I have received report from dilia simpson and had the opportunity to ask questions and assume patient care.
--- NOTE | 2020-11-05 18:47 | NUR ---
spoke to LYNDON Yuan who had the patient earlier. Kwabena mentioned pt did not administer any miralax earlier
[2020-11-05] MEDS: losartan 50mg tablet PO SCH (20:10)
[2020-11-05] MEDS: atorvastatin 10mg tablet PO SCH (20:11)
[2020-11-05] MEDS: insulin glargine (Lantus) pen - multi-dose SQ SCH (20:23)
--- NOTE | 2020-11-05 20:24 | NUR ---
gale and coperez held, sbp less than 100. Lantus not administered because pt if off achs protocol
--- NOTE | 2020-11-05 21:08 | NUR ---
pt's blood pressure is 78/54. Let charge out clerk know and notified dr oseguera about the blood pressure, pt is asymptomatic and sleeping. Asked Dr Oseguera if he wanted to intervene with fluids or anything. Also mentioned to MD that pt is a little on the drier belt conveyor side with fluid intake. Also mentioned to MD that pt's Cozaar and Metoprolol were held this evening. MD said to continue holding BP meds and monitor pt since he is asymptomatic.
[2020-11-05] MEDS: acetaminophen 325mg tablet PO PRN (23:26)
--- NOTE | 2020-11-05 23:29 | NUR ---
TYLENOL was administered for 3/10 pain pt mentioned he had in his neck
[2020-11-06] VITALS (13 sets, daily range): BP systolic 90–103; BP diastolic 54–77
--- NOTE | 2020-11-06 04:46 | NUR ---
patient ambulated 150 steps in ICU with the RN
--- NOTE | 2020-11-06 06:14 | NUR ---
Problems reprioritized. Patient report given, questions answered & plan of care reviewed with Ce HANEY.
[2020-11-06 06:17] LABS: BASOPHILS % (AUTO) 0.1 % (0-1); EOSINOPHILS % (AUTO) 0.4 % (0-6); HEMATOCRIT 32.6 % (42.0-52.0); HEMOGLOBIN 11.2 g/dl (14.0-17.9); LYMPHOCYTES # (AUTO) 1.5 X10'3 (1.1-4.8); MEAN CORPUSCULAR HEMOGLOBIN 33.2 PG (27.0-31.0); MEAN CORPUSCULAR HGB CONC 34.2 g/dL (33.0-36.5); MEAN CORPUSCULAR VOLUME 97.1 FL (78-98); MEAN PLATELET VOLUME 8.4 FL (7.4-10.4); MONOCYTES # (AUTO) 1.6 X10'3 (0-0.9); MONOCYTES % (AUTO) 17.2 % (2-12); NEUTROPHILS # (AUTO) 6.1 X10'3 (1.8-7.7); NEUTROPHILS % (AUTO) 66.3 % (42-75); PLATELET COUNT 221 X10'3 (140-440); RED BLOOD COUNT 3.36 X10'6 (4.70-6.10); RED CELL DISTRIBUTION WIDTH 12.6 % (11.5-14.5); WHITE BLOOD COUNT 9.2 X10'3 (4.5-11.0)
[2020-11-06 06:38] LABS: ALBUMIN 2.8 G/DL (3.4-5.0); ANION GAP 8 (8-16); BLOOD UREA NITROGEN 24 MG/DL (7-18); BUN/CREATININE RATIO 27.6 (5.4-32.0); CALCIUM 8.3 MG/DL (8.5-10.1); CHLORIDE 104 MMOL/L (99-107); CREATININE 0.87 MG/DL (0.60-1.10); GLUCOSE 118 MG/DL (70-104); MAGNESIUM 2.3 MG/DL (1.5-2.4); PHOSPHORUS 2.2 MG/DL (2.3-4.5); POTASSIUM 4.2 MMOL/L (3.5-5.1); SODIUM 143 MMOL/L (135-145); TOTAL CARBON DIOXIDE 30.7 MMOL/L (24-32); eGFR 88 ML/MIN
[2020-11-06] MEDS: sennosides/docusate sodium tablet PO SCH (08:00)
[2020-11-06] MEDS: pantoprazole 40mg Tablet.DR PO SCH (08:12)
[2020-11-06] MEDS: aspirin 325mg tablet, delayed-release (Ecotrin) PO SCH (08:13)
[2020-11-06] MEDS: cholecalciferol (vitamin D3) 1,000 unit (25mcg) tablet PO SCH (08:13)
[2020-11-06] MEDS: acetaminophen 325mg tablet PO PRN (08:13)
[2020-11-06] MEDS: tamsulosin 0.4mg capsule PO SCH (08:13)
[2020-11-06] MEDS: multivitamins, therapeutics tablet PO SCH (08:13)
[2020-11-06] MEDS ORDERED: HYDR-3972 PO (09:02)
[2020-11-06] MEDS ORDERED: LOP12.5T PO (09:02)
[2020-11-06] MEDS ORDERED: ASPI-1071 PO (09:02)
[2020-11-06] MEDS ORDERED: ATOR10TA PO (09:02)
[2020-11-06] MEDS ORDERED: LOSA25TA96 PO (09:06)
[2020-11-06] MEDS: metoprolol tartrate 12.5mg (1/2 tablet) PO SCH (09:50)
[2020-11-06] MEDS ORDERED: losartan 25mg tablet PO SCH (21:00)
== END 2020-11-06 17:02 | disposition home or self-care (01) | DRG 221 ==
LOC: PAS IN 05:20 → ICU 2S 11:11
PROVIDERS: ADMIT Thoracic Surgery (Cardiothoracic Vascular Surgery); ATTEND Thoracic Surgery (Cardiothoracic Vascular Surgery)
PROC: B24BZZ4 Ultrasonography of Heart with Aorta, Transesophageal (ICD-10-PCS; 2020-11-02)
PROC: 5A1935Z Respiratory Ventilation, Less than 24 Consecutive Hours (ICD-10-PCS; 2020-11-02)
PROC: 0BH17EZ Insertion of Endotracheal Airway into Trachea, Via Natural or Artificial Opening (ICD-10-PCS; 2020-11-02)
PROC: 02R Heart and Great Vessels, Replacement (ICD-10-PCS; principal; 2020-11-02 07:27)
DX: I71.2 Thoracic aortic aneurysm, without rupture (principal); I10 Essential (primary) hypertension; E78.5 Hyperlipidemia, unspecified; M19.90 Unspecified osteoarthritis, unspecified site; N40.0 Benign prostatic hyperplasia without lower urinary tract symptoms; F32.9 Major depressive disorder, single episode, unspecified; Z96.611 Presence of right artificial shoulder joint; Z96.612 Presence of left artificial shoulder joint; Z87.891 Personal history of nicotine dependence; Z88.8 Allergy status to other drugs, medicaments and biological substances; Z86.79 Personal history of other diseases of the circulatory system
CPT/HCPCS: 0232T; 93312; 93325; Z7506; Z7508; 36415; 36600; 71045; 71046; 80048; 80053; 81001; 82330; 82435; 82803; 82947; 82948; 83036; 83735; 84100; 84132; 84295; 85018; 85025; 85347; 85384; 85610; 85730; 86885; 86900; 86901; 86920; 87081; 87088; 93005; 93880; 94002; 94010; 94760; 97110; 97116; 97162; 97530; A4618; A6258; A6402; A6449; A7048; C1713; C1751; C1768; C1781; C9113; C9250; G0378; J0690; J1644; J1815; J1940; J2060; J2150; J2250; J2704; J2930; J3370; J3475; J3480; J3490; J7030; J7040; J7050; J7120; P9045